=== PATIENT | female | born 1945 | race Caucasian/White ===

== ENCOUNTER 2016-11-03 11:27 | Emergency (ER) | payer MEDICARE, OTHER ==
[~2016-11-03] VITALS: Ht 162.6 cm; Wt 68.0 kg
[2016-11-03 11:33] VITALS: BP 156/82
== END 2016-11-03 13:05 | disposition home or self-care (01) ==
LOC: ED 12:59
DX: M25.461 Effusion, right knee (principal); M17.12 Unilateral primary osteoarthritis, left knee; I10 Essential (primary) hypertension
CPT/HCPCS: 99284